=== PATIENT | male | born 1955 | race Caucasian/White ===

== ENCOUNTER 2018-11-03 10:12 | Inpatient (IN) | payer BC ==
[2018-10-31 12:26] LABS: BASOPHILS # (AUTO) 0.03 x10^3/uL (0-0.1); BASOPHILS % (AUTO) 1 % (0-1); EOSINOPHILS # (AUTO) 0.16 x10^3/uL (0-0.4); EOSINOPHILS % (AUTO) 3 % (1-7); LYMPHOCYTES # (AUTO) 0.88 x10^3/uL (1-3.4); LYMPHOCYTES % (AUTO) 18 % (22-44); MD NO; MEAN CORPUSCULAR HEMOGLOBIN 29.1 pg (27.5-34.5); MEAN CORPUSCULAR VOLUME 88.3 fL (81-97); MEAN PLATELET VOLUME 8.6 fL (7.4-10.4); MONOCYTES # (AUTO) 0.62 x10^3/uL (0.2-0.8); MONOCYTES % (AUTO) 13 % (2-9); NEUTROPHILS # (AUTO) 3.14 x10^3/uL (1.8-6.8); NEUTROPHILS % (AUTO) 65 % (42-75); PLATELET COUNT 255 x10^3/uL (130-400); RED CELL DISTRIBUTION WIDTH 13.5 % (9.4-14.8)
[2018-10-31 12:55] LABS: ALANINE AMINOTRANSFERASE 21 U/L (12-78); ALBUMIN 3.6 g/dL (3.4-5.0); ANION GAP 5 mmol/L (5-15); CALCIUM 8.6 mg/dL (8.5-10.1); CHLORIDE 103 mmol/L (98-107); CREATININE 1.06 mg/dL (0.7-1.3)
[2018-10-31 12:57] LABS: ALKALINE PHOSPHATASE 95 U/L (45-117); BILIRUBIN,TOTAL 0.3 mg/dL (0.2-1.0); TOTAL PROTEIN 7.1 g/dL (6.4-8.2)
[~2018-11-03] VITALS: Ht 172.7 cm; Wt 70.2 kg
[~2018-11-03 10:12] MED LIST: AMLO5TAB4 PO; BUPIVACAINE/PF 0.25% ONE; LOSA1TAB12 PO; OPIUM/BELLADONNA SUPP.RECT 16.2-30 MG ONE; THROMBIN 5,000 UNIT VIAL TP ONE
[2018-11-03 10:56] VITALS: BP 128/84
[2018-11-03] MEDS ORDERED: LACTATED RINGERS 1,000 ML IV SCH (10:58)
[2018-11-03] MEDS ORDERED: MIDAZOLAM 1 MG/ML, 2ML ONE (12:31)
[2018-11-03] MEDS ORDERED: FENTANYL PF 250 MCG/5ML ONE ×2 (12:32→14:15)
[2018-11-03] MEDS ORDERED: CEFAZOLIN 1,000 MG ONE ×2 (12:35)
[2018-11-03] MEDS ORDERED: DEXAMETHASONE 4 MG/ML, 1ML ONE (12:35)
[2018-11-03] MEDS ORDERED: PROPOFOL 10 MG/ML, 20ML ONE ×2 (12:35)
[2018-11-03] MEDS ORDERED: EPHEDRINE 50 MG/ML, 1ML ONE (12:35)
[2018-11-03] MEDS ORDERED: ONDANSETRON 2MG/ML, 2ML ONE ×2 (12:35)
[2018-11-03] MEDS ORDERED: LIDOCAINE 4%, 4 ML SYR/CANN TP ONE (12:35)
[2018-11-03] MEDS ORDERED: ROCURONIUM 10 MG/ML,10ML ONE ×2 (12:35)
[2018-11-03] MEDS ORDERED: SUCCINYLCHOLINE 20 MG/ML, 10ML ONE (12:35)
[2018-11-03] MEDS ORDERED: DIAZEPAM 5 MG/ML, 2ML IVPush PRN (14:00)
[2018-11-03] MEDS ORDERED: FENTANYL PF 100 MCG/2ML IV PRN (14:00)
[2018-11-03] MEDS ORDERED: ONDANSETRON 2MG/ML, 2ML IV PRN ×2 (14:00→20:30)
[2018-11-03] MEDS ORDERED: ACETAMINOPHEN 325 MG TABLET PO PRN (14:00)
[2018-11-03] MEDS ORDERED: PROMETHAZINE 25 MG/ML, 1ML IV PRN (14:00)
[2018-11-03] MEDS ORDERED: OXYcodone 5 MG/5 ML ORAL.SOL UDC PO PRN (14:00)
[2018-11-03] MEDS ORDERED: ONDANSETRON ODT 8 MG PO PRN (14:00)
[2018-11-03] MEDS ORDERED: SUGAMMADEX 200 MG/2 ML IVPush ONE (14:15)
[2018-11-03] MEDS ORDERED: FENTANYL PF 100 MCG/2ML ONE (16:43)
[2018-11-03] MEDS ORDERED: HYDROmorphone 2 MG/ML, 1ML ONE ×2 (16:44→19:14)
[2018-11-03] MEDS: HYDROmorphone 2 MG/ML, 1ML IVPush PRN ×6 (17:05→19:15)
[2018-11-03] MEDS ORDERED: MEPERIDINE/PF 25MG/ML,1ML ONE (18:20)
[2018-11-03] MEDS: MEPERIDINE/PF 25MG/0.5ML IVPush PRN ×2 (18:36→18:46)
[2018-11-03] MEDS ORDERED: morphine SULFATE 10 MG/ML, 1ML IV PRN (20:30)
[2018-11-03] MEDS ORDERED: TEMAZEPAM 15 MG CAPSULE PO PRN (20:30)
[2018-11-03] MEDS ORDERED: OPIUM/BELLADONNA SUPP.RECT 16.2-60 MG PR PRN (20:30)
[2018-11-03] MEDS: LABETALOL 5MG/ML, 20ML IVPush SCH (20:30)
[2018-11-03] MEDS: D5%-0.45NACL+KCL 20MEQ 1,000 ML IV SCH (20:49)
[2018-11-03] MEDS: OXYcodone IR 5MG TABLET PO PRN (22:19)
[2018-11-03] MEDS: ACETAMINOPHEN 500 MG TABLET PO SCH (22:20)
[2018-11-04 00:20] VITALS: BP 123/81
[2018-11-04] MEDS: ACETAMINOPHEN 500 MG TABLET PO SCH ×3 (02:39→14:40)
[2018-11-04] MEDS: OXYcodone IR 5MG TABLET PO PRN ×4 (02:39→14:40)
[2018-11-04 04:17] VITALS: BP 124/88
[2018-11-04] MEDS: LABETALOL 5MG/ML, 20ML IVPush SCH ×2 (04:30→12:30)
[2018-11-04 04:42] VITALS: BP 110/70
[2018-11-04] MEDS ORDERED: ENOXAPARIN 40 MG/0.4 ML SQ SCH (05:00)
[2018-11-04 05:06] LABS: ANION GAP 7 mmol/L (5-15); CALCIUM 8.4 mg/dL (8.5-10.1); CHLORIDE 104 mmol/L (98-107)
[2018-11-04] MEDS: D5%-0.45NACL+KCL 20MEQ 1,000 ML IV SCH ×2 (05:35→12:30)
[2018-11-04 07:51] VITALS: BP 135/89
[2018-11-04] MEDS ORDERED: HYDROCHLOROTHIAZIDE 25 MG TABLET PO SCH (09:00)
[2018-11-04] MEDS ORDERED: AMLODIPINE 5 MG TABLET PO SCH (09:00)
[2018-11-04] MEDS ORDERED: LOSARTAN 50MG TABLET PO SCH (09:00)
[2018-11-04] MEDS ORDERED: HYDR-3240 PO (10:52)
[2018-11-04 14:25] VITALS: BP 146/82
== END 2018-11-04 17:37 | disposition home or self-care (01) | DRG 708 ==
LOC: OUT 10:12 → 4NOR 19:56 → OUT 20:06 → 4NOR 20:07
PROVIDERS: ADMIT Urology; ATTEND Urology
PROC: 07BJ4ZZ Excision of Left Inguinal Lymphatic, Percutaneous Endoscopic Approach (ICD-10-PCS; 2018-11-03)
PROC: 07BH4ZZ Excision of Right Inguinal Lymphatic, Percutaneous Endoscopic Approach (ICD-10-PCS; 2018-11-03)
PROC: 8E0W4CZ Robotic Assisted Procedure of Trunk Region, Percutaneous Endoscopic Approach (ICD-10-PCS; 2018-11-03)
PROC: 03HY32Z Insertion of Monitoring Device into Upper Artery, Percutaneous Approach (ICD-10-PCS; 2018-11-03)
PROC: 3E0T3BZ Introduction of Anesthetic Agent into Peripheral Nerves and Plexi, Percutaneous Approach (ICD-10-PCS; 2018-11-03)
PROC: 0VT04ZZ Resection of Prostate, Percutaneous Endoscopic Approach (ICD-10-PCS; principal; 2018-11-03 12:00)
DX: C61 Malignant neoplasm of prostate (principal); K66.0 Peritoneal adhesions (postprocedural) (postinfection); I10 Essential (primary) hypertension
CPT/HCPCS: 36415; 80048; 80053; 85014; 85018; 85025; 86850; 86900; 88305; 88309; 93005; C1729; G0378; J0690; J1100; J1170; J1650; J2175; J2250; J2405; J2704; J3010; J3490; C1760; J0330; J2270; J3480; J7120

== ENCOUNTER → 2018-11-10 | Outpatient (CLI) | payer BC ==
[~2018-11-10] MED LIST changes: -BUPIVACAINE/PF 0.25% ONE; +CYSTO CONRAY II 250 ML VIAL UR ONE; +HYDR-3240 PO; -OPIUM/BELLADONNA SUPP.RECT 16.2-30 MG ONE; -THROMBIN 5,000 UNIT VIAL TP ONE
== END | disposition home or self-care (01) ==
LOC: RAD 12:49
PROVIDERS: ATTEND Urology
DX: C61 Malignant neoplasm of prostate (principal)
CPT/HCPCS: 74430; Q9958